=== PATIENT | female | born 1960 | race Caucasian/White ===

== ENCOUNTER 2016-10-26 17:28 | Observation (INO) | payer OTHER ==
[~2016-10-26] VITALS: Ht 170.2 cm; Wt 133.3 kg
[~2016-10-26 17:28] MED LIST: ADDERALL30 MG PO; ATIVAN0.5 MG PO; CLARITIN10 M3 PO; CYCLOBENZAPRINE10 MG PO; DICLOFENAC SODI75 MG PO; KADIAN30 MG PO; LAMOTRIGINE100 MG PO; LEVAQUIN750 MG PO; LEXAPRO; MUCINEX600 MG PO; ROXICODONE30 MG PO; VENTOLIN HFA18 GM IH; WELLBUTRIN XL300 MG PO; ZOLPIDEM TARTRA10 MG PO; [UNRECOGNIZED DRUG - REMARK]
[2016-10-26 18:32] LABS: HEMATOCRIT 45.5 % (36.0-46.0); MCH 26.3 PG (29.0-34.0); MCHC 32.7 G/DL (30.0-36.0); MCV 80.2 FL (83-99); MEAN PLAT.VOLUME 11.6 uM^3 (9.5-12.4); PLATELET COUNT 265 K/uL (156-360); RBC DIS.WIDTH-CV 14.2 % (11.8-14.6); RBC DIS.WIDTH-SD 41.2 % (39-53); RED BLOOD COUNT 5.67 M/uL (3.80-5.20); WHITE BLOOD COUNT 9.6 K/uL (4.1-10.2)
[2016-10-26 18:40] LABS: CHLORIDE 105 mEq/L (99-109); POTASSIUM 4.4 mEq/L (3.7-5.4); SODIUM 138 mEq/L (136-147)
[2016-10-26 18:41] LABS: GLUCOSE 121 mg/dL (70-99)
[2016-10-26 18:43] LABS: ANION GAP 9 MEQ/L (2-14)
[2016-10-26 18:45] LABS: GFR ESTIMATE (CALCULATED) > 59 mL/min/
[2016-10-26 18:46] LABS: UREA NITROGEN (BUN) 11 mg/dL (9-23)
[2016-10-26 18:53] LABS: TROP-I INTERPRETATION NEGATIVE; TROPONIN-I 0.01 ng/mL (0.0-0.30)
[2016-10-26] MEDS ORDERED: MORPHINE SULFAT30 M2 PO (20:30)
[2016-10-26] MEDS ORDERED: OXYCODONE HCL10 MG PO (20:30)
[2016-10-26] MEDS ORDERED: ATIVAN1 MG PO (20:31)
[2016-10-26] MEDS ORDERED: DOXYCYCLINE HYC50 M1 PO (20:32)
[2016-10-26] MEDS ORDERED: ATENOLOL/CHLOR1 EAC1 PO (20:32)
[2016-10-26] MEDS ORDERED: NEXIUM40 MG PO (20:32)
[2016-10-26] MEDS ORDERED: ERGOCALCIF50000 UNIT PO (20:32)
[2016-10-26] MEDS ORDERED: DOXYCYCLINE HYC50 MG PO (20:33)
[2016-10-26] MEDS ORDERED: SPIRONOLACTONE25 MG PO (22:28)
[2016-10-26 23:27] VITALS: BP 126/72
[2016-10-27 01:57] LABS: TROP-I INTERPRETATION NEGATIVE; TROPONIN-I 0.04 ng/mL (0.0-0.30)
[2016-10-27 03:19] VITALS: BP 131/65
[2016-10-27 07:36] LABS: HEMATOCRIT 40.4 % (36.0-46.0); MCH 26.5 PG (29.0-34.0); MCHC 32.4 G/DL (30.0-36.0); MCV 81.6 FL (83-99); MEAN PLAT.VOLUME 11.6 uM^3 (9.5-12.4); PLATELET COUNT 224 K/uL (156-360); RBC DIS.WIDTH-CV 14.6 % (11.8-14.6); RED BLOOD COUNT 4.95 M/uL (3.80-5.20)
[2016-10-27 08:01] LABS: ALKALINE PHOSPHATASE 72 IU/L (3-129); ANION GAP 7 MEQ/L (2-14); CHLORIDE 104 MEQ/L (99-109); GFR ESTIMATE (CALCULATED) > 59 mL/min/; GLUCOSE 92 mg/dL (70-99); HDL CHOLESTEROL 34 MG/DL (Desirable>=50); LDL CHOLESTEROL 134 mg/dL (Desirable<100); NON-HDL CHOLESTEROL 154 mg/dL (Desirable<160); POTASSIUM 4.6 MEQ/L (3.7-5.4); SAMPLE HEMOLYSIS CHECK 0; SAMPLE ICTERIC CHECK 0; SAMPLE LIPEMIA CHECK 0; SODIUM 136 MEQ/L (136-147); TOTAL BILIRUBIN 0.4 MG/DL (0.0-1.0); TOTAL CHOLESTEROL 188 mg/dL (Desirable<200); TRIGLYCERIDES 100 MG/DL (Normal: <150); UREA NITROGEN (BUN) 14 mg/dL (9-23)
[2016-10-27 08:06] LABS: TROP-I INTERPRETATION NEGATIVE; TROPONIN-I 0.05 ng/mL (0.0-0.30)
[2016-10-27 08:43] VITALS: BP 104/57
[2016-10-27 10:58] LABS: Estimated Average Glucose 120 mg/dL (70-123); HEMOGLOBIN A1c (GLYCOHEMOGLOB) 5.8 % HGB (Below 5.7)
[2016-10-27 11:24] VITALS: BP 115/56
[2016-10-28] MEDS ORDERED: ALDACTONE50 MG PO (18:08)
[2016-10-28] MEDS ORDERED: ASPIRIN325 MG PO (18:13)
[2016-10-28] MEDS ORDERED: CLINDAMYCIN PHO60 GM TP (18:15)
[2016-10-28] MEDS ORDERED: CLOTRIMAZOLE-BE15 GM TP (18:16)
[2016-10-28] MEDS ORDERED: LIDOCAINE-PRIL1 EACH TP (18:18)
== END 2016-10-27 13:03 | disposition home or self-care (01) ==
LOC: EME 17:28 → EDOF 22:14 → 5WEST 22:14 → EDOF 22:14 → 5WEST 23:11
PROVIDERS: Internal Medicine
DX: R07.89 Other chest pain (principal); R94.31 Abnormal electrocardiogram [ECG] [EKG]; I16.0 Hypertensive urgency; I10 Essential (primary) hypertension; F17.210 Nicotine dependence, cigarettes, uncomplicated; E66.01 Morbid (severe) obesity due to excess calories; M06.9 Rheumatoid arthritis, unspecified; M79.7 Fibromyalgia; G47.33 Obstructive sleep apnea (adult) (pediatric); Z68.42 Body mass index [BMI] 45.0-49.9, adult; M19.90 Unspecified osteoarthritis, unspecified site
CPT/HCPCS: 71020; 71275; 80048; 80053; 80061; 83036; 84484; 85027; 85379; 93005; 99202; 99281; 99285; G0378; J1644

== ENCOUNTER 2016-10-28 16:47 | Inpatient (IN) | payer OTHER ==
[~2016-10-28] VITALS: Ht 170.2 cm; Wt 139.5 kg
[~2016-10-28 16:47] MED LIST changes: +ATENOLOL/CHLOR1 EAC1 PO; +ATIVAN1 MG PO; +DOXYCYCLINE HYC50 M1 PO; +DOXYCYCLINE HYC50 MG PO; +ERGOCALCIF50000 UNIT PO; +MORPHINE SULFAT30 M2 PO; +NEXIUM40 MG PO; +OXYCODONE HCL10 MG PO; +SPIRONOLACTONE25 MG PO
[2016-10-28 17:23] LABS: HEMATOCRIT 43.2 % (36.0-46.0); MCH 26.5 PG (29.0-34.0); MCHC 32.6 G/DL (30.0-36.0); MCV 81.2 FL (83-99); MEAN PLAT.VOLUME 11.4 uM^3 (9.5-12.4); PLATELET COUNT 227 K/uL (156-360); RBC DIS.WIDTH-CV 14.3 % (11.8-14.6); RBC DIS.WIDTH-SD 42.1 % (39-53); RED BLOOD COUNT 5.32 M/uL (3.80-5.20)
[2016-10-28 17:24] LABS: WHITE BLOOD COUNT 11.5 K/uL (4.1-10.2)
[2016-10-28 17:29] LABS: CHLORIDE 101 mEq/L (99-109); POTASSIUM 4.5 mEq/L (3.7-5.4); SODIUM 135 mEq/L (136-147)
[2016-10-28 17:30] LABS: GLUCOSE 107 mg/dL (70-99)
[2016-10-28 17:32] LABS: ANION GAP 9 MEQ/L (2-14)
[2016-10-28 17:34] LABS: GFR ESTIMATE (CALCULATED) > 59 mL/min/
[2016-10-28 17:35] LABS: UREA NITROGEN (BUN) 17 mg/dL (9-23)
[2016-10-28 17:43] LABS: TROP-I INTERPRETATION NEGATIVE; TROPONIN-I 0.04 ng/mL (0.0-0.30)
[2016-10-28] MEDS ORDERED: ALDACTONE50 MG PO (18:08)
[2016-10-28] MEDS ORDERED: ASPIRIN325 MG PO (18:13)
[2016-10-28] MEDS ORDERED: CLINDAMYCIN PHO60 GM TP (18:15)
[2016-10-28] MEDS ORDERED: CLOTRIMAZOLE-BE15 GM TP (18:16)
[2016-10-28] MEDS ORDERED: LIDOCAINE-PRIL1 EACH TP (18:18)
[2016-10-28 21:20] VITALS: BP 102/62
[2016-10-28 23:21] LABS: TROP-I INTERPRETATION NEGATIVE; TROPONIN-I 0.09 ng/mL (0.0-0.30)
[2016-10-29] VITALS (8 sets, daily range): BP systolic 125–154; BP diastolic 59–87
[2016-10-29 05:44] LABS: TROP-I INTERPRETATION NEGATIVE; TROPONIN-I 0.17 ng/mL (0.0-0.30)
[2016-10-29 06:18] LABS: HEMATOCRIT 39.8 % (36.0-46.0); MCH 26.2 PG (29.0-34.0); MCHC 32.2 G/DL (30.0-36.0); MCV 81.4 FL (83-99); MEAN PLAT.VOLUME 12.1 uM^3 (9.5-12.4); PLATELET COUNT 219 K/uL (156-360); RBC DIS.WIDTH-CV 14.5 % (11.8-14.6); RBC DIS.WIDTH-SD 42.7 % (39-53); RED BLOOD COUNT 4.89 M/uL (3.80-5.20)
[2016-10-29 06:24] LABS: WHITE BLOOD COUNT 7.1 K/uL (4.1-10.2)
[2016-10-29 15:23] LABS: TROP-I INTERPRETATION INDETERMINATE; TROPONIN-I 0.37 ng/mL (0.0-0.30)
[2016-10-29 22:26] LABS: TROP-I INTERPRETATION INDETERMINATE; TROPONIN-I 0.31 ng/mL (0.0-0.30)
[2016-10-30] VITALS (7 sets, daily range): BP systolic 110–132; BP diastolic 53–58
[2016-10-30 06:18] LABS: BASOPHIL COUNT 0.1 K/uL (0-0.1); EOSINOPHIL COUNT 0.2 K/uL (0-0.3); HEMATOCRIT 40.5 % (36.0-46.0); IMMATURE GRANULOCYTE (%) 0.5 % (0.0-0.7); LYMPHOCYTE COUNT 2.8 K/uL (1.0-2.8); MCH 26.2 PG (29.0-34.0); MCHC 31.6 G/DL (30.0-36.0); MEAN PLAT.VOLUME 12.5 uM^3 (9.5-12.4); MONOCYTE (%) 7.9 % (3-12); MONOCYTE COUNT 0.6 K/uL (0-0.8); NEUTROPHIL (%) 51.2 % (45-76); PLATELET COUNT 211 K/uL (156-360); RBC DIS.WIDTH-CV 14.5 % (11.8-14.6); RBC DIS.WIDTH-SD 43.6 % (39-53); RED BLOOD COUNT 4.88 M/uL (3.80-5.20); WHITE BLOOD COUNT 7.8 K/uL (4.1-10.2)
[2016-10-30 06:46] LABS: ANION GAP 7 MEQ/L (2-14); CHLORIDE 99 MEQ/L (99-109); GFR ESTIMATE (CALCULATED) 50 mL/min/; GLUCOSE 82 mg/dL (70-99); POTASSIUM 4.6 MEQ/L (3.7-5.4); SAMPLE HEMOLYSIS CHECK 0; SAMPLE ICTERIC CHECK 0; SAMPLE LIPEMIA CHECK 0; SODIUM 134 MEQ/L (136-147); UREA NITROGEN (BUN) 22 mg/dL (9-23)
[2016-10-30 06:47] LABS: TROP-I INTERPRETATION NEGATIVE; TROPONIN-I 0.23 ng/mL (0.0-0.30)
[2016-10-30 08:00] LABS: PROTHROMBIN TIME 10.5 (9.2-11.2); PTT 28.2 (25-32)
[2016-10-31 00:43] VITALS: BP 116/54
[2016-10-31 04:31] VITALS: BP 132/61
[2016-10-31 06:42] LABS: EOSINOPHIL (%) 3.8 % (0-5); EOSINOPHIL COUNT 0.2 K/uL (0-0.3); HEMATOCRIT 39.3 % (36.0-46.0); IMMATURE GRANULOCYTE (%) 0.6 % (0.0-0.7); INSTRUMENT ABS NEUTROPHIL CT 3.6 K/uL; LYMPHOCYTE COUNT 1.8 K/uL (1.0-2.8); MCH 26.2 PG (29.0-34.0); MCHC 31.6 G/DL (30.0-36.0); MCV 82.9 FL (83-99); MEAN PLAT.VOLUME 12.7 uM^3 (9.5-12.4); MONOCYTE (%) 10.8 % (3-12); MONOCYTE COUNT 0.7 K/uL (0-0.8); NEUTROPHIL (%) 56.3 % (45-76); NEUTROPHIL COUNT 3.6 K/uL (1.8-6.4); PLATELET COUNT 196 K/uL (156-360); RBC DIS.WIDTH-CV 14.5 % (11.8-14.6); RBC DIS.WIDTH-SD 43.5 % (39-53); RED BLOOD COUNT 4.74 M/uL (3.80-5.20); WHITE BLOOD COUNT 6.3 K/uL (4.1-10.2)
[2016-10-31 07:08] LABS: ANION GAP 4 MEQ/L (2-14); CHLORIDE 103 MEQ/L (99-109); GFR ESTIMATE (CALCULATED) > 59 mL/min/; GLUCOSE 78 mg/dL (70-99); SAMPLE HEMOLYSIS CHECK 0; SAMPLE ICTERIC CHECK 0; SAMPLE LIPEMIA CHECK 0; SODIUM 135 MEQ/L (136-147); UREA NITROGEN (BUN) 18 mg/dL (9-23)
[2016-10-31 07:13] LABS: POTASSIUM 5.8 MEQ/L (3.7-5.4)
[2016-10-31 07:25] VITALS: BP 100/53
[2016-10-31 11:02] LABS: ANION GAP 7 MEQ/L (2-14); CHLORIDE 102 MEQ/L (99-109); GFR ESTIMATE (CALCULATED) 55 mL/min/; GLUCOSE 97 mg/dL (70-99); POTASSIUM 4.6 MEQ/L (3.7-5.4); SAMPLE HEMOLYSIS CHECK 0; SAMPLE ICTERIC CHECK 0; SAMPLE LIPEMIA CHECK 0; SODIUM 135 MEQ/L (136-147); UREA NITROGEN (BUN) 20 mg/dL (9-23)
[2016-10-31 11:22] VITALS: BP 99/54
[2016-10-31] MEDS ORDERED: CLOPIDOGREL75 MG PO (14:28)
[2016-10-31] MEDS ORDERED: ASPIR-LOW81 MG PO ×2 (14:29→15:36)
[2016-10-31] MEDS ORDERED: ATORVASTATIN CA40 MG PO (14:29)
[2016-10-31] MEDS ORDERED: HYGROTON25 MG PO (14:30)
[2016-10-31 16:27] VITALS: BP 97/73
== END 2016-10-31 20:43 | disposition home or self-care (01) | DRG 246 ==
LOC: EME 16:47 → EDOF 18:51 → 5WEST 20:54 → 4EAST 10-29 15:49 → 5WEST 10-29 15:49 → 4EAST 10-29 21:33
PROVIDERS: Emergency Medicine; Hospitalist; Internal Medicine; Nurse Practitioner Family; Physician Assistant Medical
DX: R07.9 Chest pain, unspecified (principal); J18.9 Pneumonia, unspecified organism; I10 Essential (primary) hypertension; I25.10 Atherosclerotic heart disease of native coronary artery without angina pectoris; G47.33 Obstructive sleep apnea (adult) (pediatric); M06.9 Rheumatoid arthritis, unspecified; M79.7 Fibromyalgia; F32.9 Major depressive disorder, single episode, unspecified; F17.210 Nicotine dependence, cigarettes, uncomplicated; E66.01 Morbid (severe) obesity due to excess calories; Z68.42 Body mass index [BMI] 45.0-49.9, adult; Z82.49 Family history of ischemic heart disease and other diseases of the circulatory system
CPT/HCPCS: 71020; 71275; 80048; 80048 91; 80053; 80061; 83036; 83880; 84484; 85025; 85027; 85347; 85379; 85415 90; 85610; 85730; 93005; 93306; 94760; 99202; 99281; 99285; C1725; C1769; C1874; C1887; G0378; J1644; J1650; J2250; J2270; J3010; J3246

== ENCOUNTER 2017-08-28 19:42 | Inpatient (IN) | payer OTHER ==
[~2017-08-28] VITALS: Ht 170.2 cm; Wt 139.1 kg
[~2017-08-28 19:42] MED LIST changes: +ALDACTONE50 MG PO; +ASPIR-LOW81 MG PO; +ASPIRIN325 MG PO; +ATORVASTATIN CA40 MG PO; +CLINDAMYCIN PHO60 GM TP; +CLOPIDOGREL75 MG PO; +CLOTRIMAZOLE-BE15 GM TP; +HYGROTON25 MG PO; +LIDOCAINE-PRIL1 EACH TP
[2017-08-28 20:17] LABS: BASOPHIL (%) 0.1 % (0-1); EOSINOPHIL (%) 0.1 % (0-5); HEMATOCRIT 28.6 % (36.0-46.0); HEMOGLOBIN 9.3 G/DL (11.9-15.5); IMMATURE GRANULOCYTE (%) 0.6 % (0.0-0.7); LYMPHOCYTE (%) 9.8 % (15-42); LYMPHOCYTE COUNT 1.4 K/uL (1.0-2.8); MCH 26.1 PG (29.0-34.0); MCHC 32.5 G/DL (30.0-36.0); MCV 80.3 FL (83-99); MONOCYTE (%) 8.1 % (3-12); MONOCYTE COUNT 1.2 K/uL (0-0.8); NEUTROPHIL (%) 81.3 % (45-76); NEUTROPHIL COUNT 11.5 K/uL (1.8-6.4); PLATELET COUNT 263 K/uL (156-360); RBC DIS.WIDTH-CV 16.2 % (11.8-14.6); RBC DIS.WIDTH-SD 47.1 % (39-53); RED BLOOD COUNT 3.56 M/uL (3.80-5.20); WHITE BLOOD COUNT 14.2 K/uL (4.1-10.2)
[2017-08-28 20:20] LABS: BASE EXCESS -14.2 mEq/L (-3 to +3); BICARBONATE 12.1 mEq/L (22-26); CARBOXY HGB 1.6 % (0-5); COMMENTS - BLOOD GASES C+A; DEVICE ROOM AIR; METHEMOGLOBIN 0.7 % (0-1.5); PCO2 29 mm Hg (35-45); PO2 77 mm Hg (80-100); SITE LR; pH 7.23 (7.35-7.45)
[2017-08-28 20:25] LABS: ALBUMIN 3.5 g/dL (3.2-4.8); CHLORIDE 101 mEq/L (99-109); POTASSIUM 5.2 mEq/L (3.7-5.4); SODIUM 135 mEq/L (136-147)
[2017-08-28 20:28] LABS: GLUCOSE 97 mg/dL (70-99)
[2017-08-28 20:30] LABS: TOTAL BILIRUBIN 0.6 mg/dL (0.0-1.0)
[2017-08-28 20:31] LABS: ALKALINE PHOSPHATASE 96 IU/L (3-129); SERUM ETHYL ALCOHOL < 10 mg/dL
[2017-08-28 20:32] LABS: CREATININE 6.2 mg/dL (0.6-1.3); GFR ESTIMATE (CALCULATED) 7 mL/min/
[2017-08-28 20:33] LABS: AST (GOT) 23 IU/L (2-34); DIRECT BILIRUBIN 0.4 mg/dL (0.0-0.3)
[2017-08-28 20:34] LABS: ALT (GPT) 14 IU/L (3-49)
[2017-08-28 20:35] LABS: LIPASE 13 U/L (1.0-51.0)
[2017-08-28 20:37] LABS: TROP-I INTERPRETATION NEGATIVE; TROPONIN-I 0.02 ng/mL (0.0-0.30)
[2017-08-28 20:41] LABS: UREA NITROGEN (BUN) 149 mg/dL (9-23)
[2017-08-28 21:14] LABS: ACETAMINOPHEN (TYLENOL) < 10 mcg/mL (10-30); SALICYLATE < 5.0 MG/DL (15-30)
[2017-08-28] MEDS ORDERED: DOXYCYCLINE HYC50 MG PO (22:03)
[2017-08-28] MEDS ORDERED: LISINOPRIL10 MG PO (22:04)
[2017-08-28] MEDS ORDERED: ESCITALOPRAM OX10 MG PO (22:05)
[2017-08-28] MEDS ORDERED: POLYETHYLENE G255 GM PO (22:05)
[2017-08-28] MEDS ORDERED: ATENOLOL50 MG PO (22:05)
[2017-08-28] MEDS ORDERED: SPIRONOLACTONE50 MG PO (22:06)
[2017-08-28] MEDS ORDERED: LORAZEPAM1 MG PO (22:06)
[2017-08-28] MEDS ORDERED: BUPROPION XL300 MG PO (22:07)
[2017-08-28] MEDS ORDERED: RANITIDINE HCL150 MG PO (22:07)
[2017-08-28] MEDS ORDERED: COLACE100 MG PO (22:09)
[2017-08-28] MEDS ORDERED: ALKA-SELTZER H1 EAC1 PO (22:09)
[2017-08-28] MEDS ORDERED: DULCOLAX5 MG PO (22:10)
[2017-08-28 22:44] LABS: APPEARANCE SL.HAZY ((CLEAR)); BILIRUBIN NEGATIVE; BLOOD MODERATE; COLOR YELLOW ((YELLOW)); GLUCOSE (STRIP) NEGATIVE; KETONES NEGATIVE; LEUKOCYTES MODERATE; NITRITE NEGATIVE; PROTEIN (STRIP) 30; SPECIFIC GRAVITY 1.014 (1.000-1.030); UROBILINOGEN 0.2 MG/DL (0.2-1.0)
[2017-08-28 23:03] LABS: BACTERIA 1+ /HPF; EPITHELIAL CELLS 1+ /HPF; MUCUS TRACE /LPF; RED BLOOD CELLS 0-5 /HPF (0-5); UCUL ADDED? YES
[2017-08-28 23:19] LABS: AMPHETAMINE NEGATIVE (500 ng/mL); BARBITURATES NEGATIVE (200 ng/mL); BENZODIAZEPINES PRESUMPTIVE POSITIVE (150 ng/mL); BUPRENORPHINE NEGATIVE (10 ng/mL); COCAINE NEGATIVE (150 ng/mL); METHADONE NEGATIVE (200 ng/mL); METHAMPHETAMINE NEGATIVE (500 ng/mL); OPIATES (MORPHINE) PRESUMPTIVE POSITIVE (100 ng/mL); OXYCODONE NEGATIVE (100 ng/mL); PHENCYCLIDINE NEGATIVE (25 ng/mL); PROPOXYPHENE NEGATIVE (300 ng/mL); THC CANNABINOIDS NEGATIVE (50 ng/mL); TRICYCLIC ANTIDEPRESSANTS NEGATIVE (300 ng/mL)
[2017-08-29 00:32] LABS: BENZODIAZEPINES, URINE SCREEN Negative (200 ng/mL)
[2017-08-29 00:49] VITALS: BP 106/51
[2017-08-29 06:40] VITALS: BP 114/52
[2017-08-29 07:17] LABS: ALBUMIN 3.1 G/DL (3.2-4.8); CHLORIDE 107 MEQ/L (99-109); CREATININE 3.5 MG/DL (0.6-1.3); GFR ESTIMATE (CALCULATED) 14 mL/min/; GLUCOSE 87 mg/dL (70-99); PHOSPHORUS 6.4 mg/dL (2.5-4.9); POTASSIUM 4.7 MEQ/L (3.7-5.4); SODIUM 138 MEQ/L (136-147); UREA NITROGEN (BUN) 121 mg/dL (9-23)
[2017-08-29 07:55] LABS: HEMATOCRIT 26.9 % (36.0-46.0); HEMOGLOBIN 8.7 G/DL (11.9-15.5); MCH 26.4 PG (29.0-34.0); MCHC 32.3 G/DL (30.0-36.0); MCV 81.5 FL (83-99); PLATELET COUNT 226 K/uL (156-360); RBC DIS.WIDTH-CV 16.7 % (11.8-14.6); RBC DIS.WIDTH-SD 49.2 % (39-53); WHITE BLOOD COUNT 10.5 K/uL (4.1-10.2)
[2017-08-29 08:04] LABS: BASE EXCESS -11.9 mEq/L (-3 to +3); BICARBONATE 13.6 mEq/L (22-26); CARBOXY HGB 1.6 % (0-5); COMMENTS - BLOOD GASES A+C+; DEVICE RA; METHEMOGLOBIN 1.4 % (0-1.5); PCO2 29 mm Hg (35-45); PO2 90 mm Hg (80-100); SITE RR; TOTAL RESP RATE 24 resp/min; pH 7.28 (7.35-7.45)
[2017-08-29 13:04] LABS: CHLORIDE 108 MEQ/L (99-109); GLUCOSE 100 mg/dL (70-99); POTASSIUM 4.3 MEQ/L (3.7-5.4); SODIUM 136 MEQ/L (136-147); UREA NITROGEN (BUN) 97 mg/dL (9-23)
[2017-08-29 13:05] LABS: CREATININE 2.3 MG/DL (0.6-1.3); GFR ESTIMATE (CALCULATED) 23 mL/min/
[2017-08-29 16:02] VITALS: BP 158/61
[2017-08-29 19:12] LABS: HEMATOCRIT 27.2 % (36.0-46.0); HEMOGLOBIN 8.9 G/DL (11.9-15.5); MCV 79.3 FL (83-99)
[2017-08-29 19:24] VITALS: BP 98/49
[2017-08-29 19:30] LABS: CHLORIDE 110 MEQ/L (99-109); GLUCOSE 109 mg/dL (70-99); SODIUM 140 MEQ/L (136-147); UREA NITROGEN (BUN) 82 mg/dL (9-23)
[2017-08-29 19:36] LABS: CREATININE 1.4 MG/DL (0.6-1.3); GFR ESTIMATE (CALCULATED) 41 mL/min/
[2017-08-29 23:11] VITALS: BP 126/61
[2017-08-30 03:18] VITALS: BP 118/56
[2017-08-30 06:35] VITALS: BP 119/57
[2017-08-30 07:08] LABS: STOOL OCCULT BLD 1ST SPECIMEN NEGATIVE
[2017-08-30 08:47] LABS: HEMATOCRIT 27.7 % (36.0-46.0); HEMOGLOBIN 9.1 G/DL (11.9-15.5); MCH 26.4 PG (29.0-34.0); MCHC 32.9 G/DL (30.0-36.0); MCV 80.3 FL (83-99); PLATELET COUNT 232 K/uL (156-360); RBC DIS.WIDTH-CV 16.8 % (11.8-14.6); RBC DIS.WIDTH-SD 49.1 % (39-53); RED BLOOD COUNT 3.45 M/uL (3.80-5.20); WHITE BLOOD COUNT 10.1 K/uL (4.1-10.2)
[2017-08-30 09:10] LABS: CHLORIDE 109 MEQ/L (99-109); CREATININE 0.9 MG/DL (0.6-1.3); GFR ESTIMATE (CALCULATED) > 59 mL/min/; GLUCOSE 115 mg/dL (70-99); POTASSIUM 4.3 MEQ/L (3.7-5.4); SODIUM 145 MEQ/L (136-147); UREA NITROGEN (BUN) 52 mg/dL (9-23)
[2017-08-30 11:00] VITALS: BP 149/67
[2017-08-30 14:49] VITALS: BP 145/73
[2017-08-30 20:04] VITALS: BP 136/65
[2017-08-31 00:07] VITALS: BP 134/69
[2017-08-31 05:56] LABS: HEMATOCRIT 28.6 % (36.0-46.0); HEMOGLOBIN 9.1 G/DL (11.9-15.5); MCH 25.9 PG (29.0-34.0); MCHC 31.8 G/DL (30.0-36.0); MCV 81.3 FL (83-99); NRBC (%) 0.2 /100 WBC (0-0); PLATELET COUNT 219 K/uL (156-360); RBC DIS.WIDTH-CV 16.3 % (11.8-14.6); RBC DIS.WIDTH-SD 48.6 % (39-53); RED BLOOD COUNT 3.52 M/uL (3.80-5.20); WHITE BLOOD COUNT 9.6 K/uL (4.1-10.2)
[2017-08-31 06:21] LABS: CHLORIDE 108 MEQ/L (99-109); CREATININE 0.8 MG/DL (0.6-1.3); GFR ESTIMATE (CALCULATED) > 59 mL/min/; GLUCOSE 100 mg/dL (70-99); POTASSIUM 4.1 MEQ/L (3.7-5.4); SODIUM 144 MEQ/L (136-147); UREA NITROGEN (BUN) 31 mg/dL (9-23)
[2017-08-31 06:41] LABS: ABS NEUTROPHIL COUNT 8.3; ANISOCYTOSIS 1+; ATYPICAL LYMPHOCYTE 0.9 %; BAND NEUTROPHILS 0.9 % (0-8.0); EOSINOPHIL ABS CT 0.2; EOSINOPHILS 1.7 % (0-5.0); GIANT PLATELETS 1+; HYPOCHROMASIA 1+; LYMPHOCYTES 2.6 % (15.0-45.0); METAMYELOCYTES 0.9 %; MICROCYTOSIS 1+; MONOCYTES 7.8 % (0-9.0); NUCLEATED RBC'S 1.7; OVALOCYTES 1+; PLAT.SUFFICIENCY ADEQUATE; SEG.NEUTROPHILS 85.2 % (46.0-76.0); TOX.VACUOLIZATION 2+; TOXIC GRANULATION 1+
[2017-08-31 07:00] VITALS: BP 159/79
[2017-08-31 16:15] VITALS: BP 146/71
[2017-08-31 23:52] VITALS: BP 113/53
[2017-09-01 07:07] LABS: HEMATOCRIT 34.5 % (36.0-46.0); HEMOGLOBIN 10.4 G/DL (11.9-15.5); MCH 25.7 PG (29.0-34.0); MCHC 30.1 G/DL (30.0-36.0); MCV 85.2 FL (83-99); NRBC (%) 0.6 /100 WBC (0-0); PLATELET COUNT 164 K/uL (156-360); RBC DIS.WIDTH-CV 16.1 % (11.8-14.6); RBC DIS.WIDTH-SD 50.4 % (39-53); RED BLOOD COUNT 4.05 M/uL (3.80-5.20); WHITE BLOOD COUNT 9.1 K/uL (4.1-10.2)
[2017-09-01 07:11] LABS: CHLORIDE 108 MEQ/L (99-109); CREATININE 0.8 MG/DL (0.6-1.3); GFR ESTIMATE (CALCULATED) > 59 mL/min/; GLUCOSE 94 mg/dL (70-99); SODIUM 144 MEQ/L (136-147); UREA NITROGEN (BUN) 19 mg/dL (9-23)
[2017-09-01 07:31] VITALS: BP 177/82
[2017-09-01 07:52] LABS: ABS NEUTROPHIL COUNT 5.2; ANISOCYTOSIS 1+; EOSINOPHIL ABS CT 0.4; HYPOCHROMASIA 1+; MICROCYTOSIS 1+; OVALOCYTES 1+; PLAT.SUFFICIENCY ADEQUATE; TEAR DROP CELLS 1+
[2017-09-01] MEDS ORDERED: FLORASTOR250 MG PO (08:56)
[2017-09-01] MEDS ORDERED: NIX 5% CREAM60 GM TP (08:57)
[2017-09-01 10:00] VITALS: BP 154/96
[2017-09-01 11:49] VITALS: BP 118/72
== END 2017-09-01 14:45 | disposition home or self-care (01) | DRG 690 ==
LOC: EME 19:42 → 5EAST 21:38 → EDOF 21:38 → ENRESERV 21:43 → 5EAST 08-29 00:24
PROVIDERS: Emergency Medicine; Hospitalist; Internal Medicine
DX: N39.0 Urinary tract infection, site not specified (principal); N17.9 Acute kidney failure, unspecified; E66.01 Morbid (severe) obesity due to excess calories; I10 Essential (primary) hypertension; I25.10 Atherosclerotic heart disease of native coronary artery without angina pectoris; E86.0 Dehydration; E87.2 Acidosis; M79.7 Fibromyalgia; G47.33 Obstructive sleep apnea (adult) (pediatric); Z68.42 Body mass index [BMI] 45.0-49.9, adult; F41.8 Other specified anxiety disorders; D64.9 Anemia, unspecified; G89.29 Other chronic pain; F17.200 Nicotine dependence, unspecified, uncomplicated; K21.9 Gastro-esophageal reflux disease without esophagitis; M06.9 Rheumatoid arthritis, unspecified; F22 Delusional disorders
CPT/HCPCS: 36600; 70450; 71046; 76770; 80048; 80048 91; 80069; 80076; 81003; 82140; 82272; 82570; 82803; 83605; 83690; 83930; 83935; 84156; 84300; 84484; 84999; 85014; 85018; 85025; 85027; 87077; 87086; 87186; 93005; 99281; 99285; G0480; J0696; J1644; J7030; J7070

== ENCOUNTER 2017-10-14 16:34 | Inpatient (IN) | payer OTHER ==
[~2017-10-14] VITALS: Ht 170.2 cm; Wt 140.3 kg
[~2017-10-14 16:34] MED LIST changes: -ATENOLOL/CHLOR1 EAC1 PO; +ATENOLOL50 MG PO; -ATIVAN1 MG PO; +BUPROPION XL300 MG PO; +DULCOLAX5 MG PO; -ERGOCALCIF50000 UNIT PO; +FLORASTOR250 MG PO; +LORAZEPAM1 MG PO; +NIX 5% CREAM60 GM TP; -OXYCODONE HCL10 MG PO; +SPIRONOLACTONE50 MG PO; -ZOLPIDEM TARTRA10 MG PO
[2017-10-14 18:49] LABS: HEMATOCRIT 30.3 % (36.0-46.0); HEMOGLOBIN 9.8 G/DL (11.9-15.5); MCH 26.8 PG (29.0-34.0); MCHC 32.3 G/DL (30.0-36.0); MCV 82.8 FL (83-99); PLATELET COUNT 230 K/uL (156-360); RBC DIS.WIDTH-CV 15.4 % (11.8-14.6); RBC DIS.WIDTH-SD 46.9 % (39-53); RED BLOOD COUNT 3.66 M/uL (3.80-5.20); WHITE BLOOD COUNT 9.5 K/uL (4.1-10.2)
[2017-10-14 18:57] LABS: ALBUMIN 3.9 g/dL (3.2-4.8)
[2017-10-14 18:58] LABS: CHLORIDE 99 mEq/L (99-109); POTASSIUM 5.5 mEq/L (3.7-5.4); SODIUM 129 mEq/L (136-147)
[2017-10-14 18:59] LABS: GLUCOSE 74 mg/dL (70-99)
[2017-10-14 19:00] LABS: TOTAL PROTEIN 7.1 g/dL (6.4-8.3)
[2017-10-14 19:01] LABS: TOTAL BILIRUBIN 0.8 mg/dL (0.0-1.0)
[2017-10-14 19:03] LABS: ALKALINE PHOSPHATASE 97 IU/L (3-129); CREATININE 5.1 mg/dL (0.6-1.3); GFR ESTIMATE (CALCULATED) 9 mL/min/
[2017-10-14 19:04] LABS: UREA NITROGEN (BUN) 95 mg/dL (9-23)
[2017-10-14 19:05] LABS: AST (GOT) 32 IU/L (2-34); DIRECT BILIRUBIN 0.5 mg/dL (0.0-0.3)
[2017-10-14 19:06] LABS: ALT (GPT) 20 IU/L (3-49)
[2017-10-14 19:07] LABS: LIPASE 17 U/L (1.0-51.0)
[2017-10-14] MEDS ORDERED: [UNRECOGNIZED DRUG - REMARK] (22:02)
[2017-10-14 22:03] LABS: APPEARANCE SL.HAZY ((CLEAR)); BILIRUBIN NEGATIVE; BLOOD SMALL; COLOR YELLOW ((YELLOW)); GLUCOSE (STRIP) NEGATIVE; KETONES NEGATIVE; LEUKOCYTES NEGATIVE; NITRITE NEGATIVE; PROTEIN (STRIP) NEGATIVE; UROBILINOGEN 0.2 MG/DL (0.2-1.0)
[2017-10-14 22:14] LABS: AMPHETAMINE NEGATIVE (500 ng/mL); BARBITURATES NEGATIVE (200 ng/mL); BENZODIAZEPINES PRESUMPTIVE POSITIVE (150 ng/mL); BUPRENORPHINE NEGATIVE (10 ng/mL); COCAINE NEGATIVE (150 ng/mL); METHADONE NEGATIVE (200 ng/mL); METHAMPHETAMINE NEGATIVE (500 ng/mL); OPIATES (MORPHINE) PRESUMPTIVE POSITIVE (100 ng/mL); OXYCODONE NEGATIVE (100 ng/mL); PHENCYCLIDINE NEGATIVE (25 ng/mL); PROPOXYPHENE NEGATIVE (300 ng/mL); THC CANNABINOIDS NEGATIVE (50 ng/mL); TRICYCLIC ANTIDEPRESSANTS NEGATIVE (300 ng/mL)
[2017-10-14 22:21] LABS: BACTERIA RARE /HPF; EPITHELIAL CELLS 1+ /HPF; HYALINE CASTS 0-5 /LPF; MUCUS TRACE /LPF; RED BLOOD CELLS 0-5 /HPF (0-5)
[2017-10-15] VITALS (7 sets, daily range): BP systolic 108–137; BP diastolic 53–72
[2017-10-15 01:29] LABS: BENZODIAZEPINES, URINE SCREEN Negative (200 ng/mL)
[2017-10-15 06:47] LABS: HEMATOCRIT 30.5 % (36.0-46.0); HEMOGLOBIN 9.5 G/DL (11.9-15.5); MCHC 31.1 G/DL (30.0-36.0); MCV 83.3 FL (83-99); PLATELET COUNT 225 K/uL (156-360); RBC DIS.WIDTH-CV 15.6 % (11.8-14.6); RBC DIS.WIDTH-SD 47.8 % (39-53); RED BLOOD COUNT 3.66 M/uL (3.80-5.20); WHITE BLOOD COUNT 7.3 K/uL (4.1-10.2)
[2017-10-15 07:08] LABS: CHLORIDE 103 MEQ/L (99-109); POTASSIUM 5.5 MEQ/L (3.7-5.4); UREA NITROGEN (BUN) 79 mg/dL (9-23)
[2017-10-15 07:09] LABS: CREATININE 3.1 MG/DL (0.6-1.3); GFR ESTIMATE (CALCULATED) 17 mL/min/; GLUCOSE 97 mg/dL (70-99); SODIUM 136 MEQ/L (136-147)
[2017-10-15 07:10] LABS: ALBUMIN 4.1 G/DL (3.2-4.8); CHLORIDE 102 MEQ/L (99-109); PHOSPHORUS 6.9 mg/dL (2.5-4.9); POTASSIUM 5.4 MEQ/L (3.7-5.4); SODIUM 134 MEQ/L (136-147); UREA NITROGEN (BUN) 78 mg/dL (9-23)
[2017-10-15 07:11] LABS: CREATININE 3.1 MG/DL (0.6-1.3); GFR ESTIMATE (CALCULATED) 17 mL/min/; GLUCOSE 97 mg/dL (70-99)
[2017-10-15] MEDS ORDERED: ZOLPIDEM TARTRA10 MG PO (18:17)
[2017-10-15] MEDS ORDERED: ATIVAN1 MG PO (18:18)
[2017-10-15] MEDS ORDERED: ERGOCALCIF50000 UNIT PO (18:18)
[2017-10-15] MEDS ORDERED: OXYCODONE HCL10 MG PO (18:18)
[2017-10-15] MEDS ORDERED: ATENOLOL/CHLOR1 EAC1 PO (18:18)
[2017-10-15] MEDS ORDERED: ALKA-SELTZER H1 EAC1 PO (18:19)
[2017-10-15] MEDS ORDERED: ESCITALOPRAM OX10 MG PO (18:19)
[2017-10-15] MEDS ORDERED: POLYETHYLENE G255 GM PO (18:19)
[2017-10-15] MEDS ORDERED: LISINOPRIL10 MG PO (18:19)
[2017-10-15] MEDS ORDERED: COLACE100 MG PO (18:19)
[2017-10-15] MEDS ORDERED: RANITIDINE HCL150 MG PO (18:19)
[2017-10-15] MEDS ORDERED: VENTOLIN HFA18 GM IH (18:25)
[2017-10-15] MEDS ORDERED: PLAVIX75 MG PO (18:26)
[2017-10-15] MEDS ORDERED: LIPITOR40 MG PO (18:27)
[2017-10-15] MEDS ORDERED: LO-DOSE ASPIRIN81 M2 PO (18:28)
[2017-10-15] MEDS ORDERED: FLORASTOR250 MG PO (18:30)
[2017-10-15] MEDS ORDERED: NIX 5% CREAM60 GM TP (18:32)
[2017-10-16 04:05] VITALS: BP 165/78
[2017-10-16 06:24] LABS: BASOPHIL (%) 0.6 % (0-1); EOSINOPHIL (%) 1.8 % (0-5); EOSINOPHIL COUNT 0.1 K/uL (0-0.3); HEMOGLOBIN 8.4 G/DL (11.9-15.5); IMMATURE GRANULOCYTE (%) 0.3 % (0.0-0.7); LYMPHOCYTE (%) 24.5 % (15-42); LYMPHOCYTE COUNT 0.8 K/uL (1.0-2.8); MCH 25.7 PG (29.0-34.0); MCHC 31.1 G/DL (30.0-36.0); MCV 82.6 FL (83-99); MONOCYTE (%) 11.5 % (3-12); MONOCYTE COUNT 0.4 K/uL (0-0.8); NEUTROPHIL (%) 61.3 % (45-76); PLATELET COUNT 177 K/uL (156-360); RBC DIS.WIDTH-CV 15.6 % (11.8-14.6); RBC DIS.WIDTH-SD 47.1 % (39-53); RED BLOOD COUNT 3.27 M/uL (3.80-5.20); WHITE BLOOD COUNT 3.3 K/uL (4.1-10.2)
[2017-10-16 06:48] LABS: CHLORIDE 109 MEQ/L (99-109); GFR ESTIMATE (CALCULATED) > 59 mL/min/; GLUCOSE 90 mg/dL (70-99); POTASSIUM 4.6 MEQ/L (3.7-5.4); SODIUM 138 MEQ/L (136-147)
[2017-10-16 06:50] LABS: UREA NITROGEN (BUN) 38 mg/dL (9-23)
[2017-10-16 07:34] VITALS: BP 159/73
[2017-10-16 12:34] LABS: HEMATOCRIT 27.8 % (36.0-46.0); HEMOGLOBIN 8.6 G/DL (11.9-15.5); MCV 82.5 FL (83-99)
[2017-10-16] MEDS ORDERED: ATENOLOL50 MG PO (13:42)
== END 2017-10-16 15:56 | disposition home or self-care (01) | DRG 683 ==
LOC: EME 16:34 → 5SOUTH 22:31 → EDOF 22:31 → ENRESERV 22:32 → EDOF 10-15 00:11 → 5SOUTH 10-15 00:11
PROVIDERS: Emergency Medicine; Hospitalist; Internal Medicine Nephrology; Physician Assistant Medical
DX: N17.0 Acute kidney failure with tubular necrosis (principal); E87.1 Hypo-osmolality and hyponatremia; E87.2 Acidosis; Z68.42 Body mass index [BMI] 45.0-49.9, adult; F33.9 Major depressive disorder, recurrent, unspecified; K76.0 Fatty (change of) liver, not elsewhere classified; E66.01 Morbid (severe) obesity due to excess calories; E86.0 Dehydration; E87.5 Hyperkalemia; F17.210 Nicotine dependence, cigarettes, uncomplicated; F41.8 Other specified anxiety disorders; G47.33 Obstructive sleep apnea (adult) (pediatric); I10 Essential (primary) hypertension; I25.10 Atherosclerotic heart disease of native coronary artery without angina pectoris; K21.9 Gastro-esophageal reflux disease without esophagitis; M79.7 Fibromyalgia; M06.9 Rheumatoid arthritis, unspecified; T50.2X5A Adverse effect of carbonic-anhydrase inhibitors, benzothiadiazides and other diuretics, initial encounter; G89.29 Other chronic pain; I95.9 Hypotension, unspecified; D64.9 Anemia, unspecified; Z90.49 Acquired absence of other specified parts of digestive tract; Z79.51 Long term (current) use of inhaled steroids; Z79.02 Long term (current) use of antithrombotics/antiplatelets; Z79.82 Long term (current) use of aspirin; Z82.49 Family history of ischemic heart disease and other diseases of the circulatory system
CPT/HCPCS: 76705; 76770; 80048; 80048 91; 80053; 80069; 81003; 82140; 82248; 82330; 83690; 83735; 83930; 83935; 84300; 84999; 85014; 85018; 85025; 85027; 99281; 99285; J1644; J2405; J7030